=== PATIENT | female | born 1970 | race Caucasian/White ===

== ENCOUNTER 2017-06-18 08:00 | Outpatient (CLI) | payer OTHER ==
[2017-06-18 12:46] LABS: BASOPHILS % (AUTO) 0.7 %; EOSINOPHILS # (AUTO) 0.1 10^3/uL (0.0-0.7); EOSINOPHILS % (AUTO) 1.2 %; HGB - HEMOGLOBIN 15.7 g/dL (12.0-16.0); LYMPHOCYTES # (AUTO) 1.6 10^3/uL (1.5-3.5); MEAN CORPUSCULAR HEMOGLOBIN 32.3 pg (27.0-31.0); MEAN CORPUSCULAR HGB CONC 34.8 g/dL (32.0-36.0); MEAN CORPUSCULAR VOLUME 92.8 fL (81.0-99.0); MEAN PLATELET VOLUME 8.3 fL (7.9-10.8); MONOCYTES # (AUTO) 0.4 10^3/uL (0.0-1.0); MONOCYTES % (AUTO) 7.1 %; NEUTROPHILS # (AUTO) 4.1 10^3/uL (1.5-6.6); PLT - PLATELET COUNT 220 10^3/uL (130-450); RED BLOOD COUNT 4.87 10^6/uL (4.20-5.40); RED CELL DISTRIBUTION WIDTH 12.7 % (12.0-15.0); WHITE BLOOD COUNT 6.3 x10^3/uL (4.8-10.8)
[2017-06-18 13:14] LABS: ALBUMIN 4.4 g/dL (3.2-5.5); ALBUMIN/GLOBULIN RATIO 1.6 (1.0-2.2); ALKALINE PHOSPHATASE 45 IU/L (42-121); ALT ALANINE AMINOTRANSFERASE 19 IU/L (10-60); AST ASPARTATE AMINOTRANSFERASE 22 IU/L (10-42); BILIRUBIN,TOTAL 0.6 mg/dL (0.2-1.0); BUN - BLOOD UREA NITROGEN 12 mg/dL (6-20); CALCIUM 9.2 mg/dL (8.5-10.3); CARBON DIOXIDE - CO2 22 mmol/L (21-32); CHLORIDE 107 mmol/L (101-111); CHOLESTEROL 190 mg/dL; CREATININE 0.6 mg/dL (0.4-1.0); GFR - MDRD 108 (>89); GLUCOSE 96 mg/dL (70-100); HDL CHOLESTEROL 64 mg/dL; LDL CHOLESTEROL,CALCULATED 107 mg/dL; LDL/HDL RATIO 1.7 (<4.4); SODIUM 137 mmol/L (135-145); TOTAL PROTEIN 7.2 g/dL (6.7-8.2); VLDL CHOLESTEROL 19 mg/dL
== END 2017-06-18 08:01 | disposition home or self-care (01) ==
LOC: LAB.WCP 08:00
PROVIDERS: ATTEND Family Medicine
DX: I95.1 Orthostatic hypotension (principal)
CPT/HCPCS: 36415; 80053; 80061; 82533; 83721; 84443; 85025

== ENCOUNTER 2018-03-01 14:30 | Outpatient (CLI) | payer OTHER | END 2018-03-01 23:59 | disposition home or self-care (01) | LOC: LAB.R 14:30 | PROVIDERS: ATTEND Physician Assistant | DX: R30.0 Dysuria (principal) | CPT/HCPCS: 87086; 87181 ==

== ENCOUNTER 2020-01-12 20:58 | Emergency (ER) | payer OTHER ==
[2020-01-12 21:08] VITALS: BP 130/71
[2020-01-12] MEDS ORDERED: DEXAMETHASONE 10 MG/ML VIAL PO STA (21:27)
[2020-01-12] MEDS ORDERED: CHERRY SYRUP 10 ML UDC PO ONE (21:27)
[2020-01-12] MEDS ORDERED: KETOROLAC 60 MG/2 ML VIAL IM STA (21:27)
--- NOTE | 2020-01-12 21:30 | ED Physician Documentation ---
PD HPI BACK PAIN - Stated complaint Stated Complaint: BACK INJURY - Chief complaint Chief Complaint: Back Pain - History obtained from History obtained from: Patient - History of Present Illness Timing - onset: How many days ago (5) Timing - duration: Days (5) Timing - details: Gradual onset, Still present Location: Lower Quality: Pain, Spasm, Sharp Associated symptoms: No: Fever, Weakness, Numbness, Incontinent of urine, Unable to urinate, Hematuria, Incontinent of stool Improves with: Rest, Ice, Position, Meds Worsened by: Movement, Lifting, Twisting Contributing factors: Other (work related injury from pulling heavy cart) Similar symptoms before: Has not had sx before Recently seen: Not recently seen - Additional information Additional information: 49 y/o female 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 She is using a heating pack and switching to ice. She has been sleeping with the heading pack on. Review of Systems Constitutional: denies: Fever Eyes: denies: Decreased vision Ears: denies: Ear pain Nose: denies: Rhinorrhea / runny nose, Congestion Respiratory: denies: Cough GI: denies: Vomiting, Constipation, Diarrhea Musculoskeletal: reports: Back pain. denies: Extremity pain PD PAST MEDICAL HISTORY - Present Medications Home Medications: Ambulatory Orders Medication Instructions Recorded Confirmed Cyclobenzaprine [Flexeril] 10 mg PO TID PRN #20 tablet 01/12/20 - Allergies Allergies/Adverse Reactions: Allergies Allergy/AdvReac Type Severity Reaction Status Date / Time No Known Drug Allergies Allergy Verified 01/12/20 21:08 PD ED PE NORMAL - Vitals Vital signs reviewed: Yes (normal ) - General General: Alert and oriented X 3, No acute distress, Well developed/nourished - HEENT HEENT: Atraumatic, PERRL, EOMI - Respiratory Respiratory: No respiratory distress - Back Back: No CVA TTP, No spinal TTP, Other (There is tenderness to the paraspinous muscles of the lower lumbar spine bilaterally extending to the insertion of the latisums to the ishium) - Derm Derm: Normal color, Warm and dry, No rash - Extremities Extremities: No deformity, No tenderness to palpate, Normal ROM s pain, No edema - Neuro Neuro: Alert and oriented X 3, corporate lawyer 2-12 intact, No motor deficit, No sensory deficit, Normal speech Eye Opening: Spontaneous Motor: Obeys Commands Verbal: Oriented GCS Score: 15 - Psych Psych: Normal mood, Normal affect Results - Vitals Vitals: Vital Signs - 24 hr 01/12/20 21:02 Temperature 36.9 C Heart Rate 99 Respiratory 18 Rate Blood Pressure 130/71 O2 Saturation 99 Oxygen O2 Source Room air PD MEDICAL DECISION MAKING - ED course Complexity details: considered differential, d/w patient ED course: 49 y/o female with a myofacial strain of the lower back related to pulling heavy carts at work. She has no signs or symptoms of disc disease. she is treated here in the ED with decadron and toradal and she refuses narcotic script. We will provide muscle relaxant and a note for work. Departure - Departure Disposition: 01 Home, Self Care Clinical Impression: Acute lumbar myofascial strain Qualifiers: Encounter type: initial encounter Qualified Code(s): S39.012A - Strain of muscle, fascia and tendon of lower back, initial encounter Condition: Stable Instructions: ED Sprain Strain Lumbar Follow-Up: Isaac Daniels DO [Primary Care Provider] - Prescriptions: Cyclobenzaprine [Flexeril] 10 mg PO TID PRN #20 tablet PRN Reason: Spasms Forms: Activity restrictions
== END 2020-01-12 21:54 | disposition home or self-care (01) ==
LOC: ED 20:58
DX: S39.012A Strain of muscle, fascia and tendon of lower back, initial encounter (principal); X50.0XXA Overexertion from strenuous movement or load, initial encounter; Y93.89 Activity, other specified; Y92.29 Other specified public building as the place of occurrence of the external cause; Y99.0 Civilian activity done for income or pay
CPT/HCPCS: 96372; 99282; 99284; A9270

== ENCOUNTER 2020-01-17 09:45 | Outpatient (CLI) | payer OTHER ==
--- NOTE | 2020-01-17 10:26 | XRAY Report ---
PROCEDURE: Lumbar Spine View INDICATIONS: LUMBAR STRAIN TECHNIQUE: 2 views of the lumbar spine were acquired. COMPARISON: None. FINDINGS: Bones: 5 [id number] vertebrae are present. There is normal bony alignment. No acute vertebral body compression fractures. No suspicious bony lesions. Mild mid and lower lumbar spondylosis most pronounced at L5-S1. Soft tissues: Overlying bowel gas pattern is normal. No suspicious soft tissue calcifications. IMPRESSION: Lumbar spine without acute osseous abnormalities. Mild mid and lower lumbar spondylosis. Reviewed by: Shane Jacques MD on 01/17/2020 10:25 AM PST Approved by: Shane Jacques MD on 01/17/2020 10:25 AM PST Station ID: [id number]
== END 2020-01-17 09:46 | disposition home or self-care (01) ==
LOC: DI.WCP 09:45
PROVIDERS: ATTEND Family Medicine
DX: S39.012A Strain of muscle, fascia and tendon of lower back, initial encounter (principal); M47.816 Spondylosis without myelopathy or radiculopathy, lumbar region
CPT/HCPCS: 72100

== ENCOUNTER 2020-04-09 09:17 | Emergency (ER) | payer OTHER ==
[2020-04-09] MEDS ORDERED: SODIUM CHLORIDE 0.9% 1,000 ML IV STA (09:27)
--- NOTE | 2020-04-09 09:50 | XRAY Report ---
PROCEDURE: Chest 1 View X-Ray INDICATIONS: Chest Pain TECHNIQUE: One view of the chest was acquired. COMPARISON: None FINDINGS: Surgical changes and devices: None. Lungs and pleura: No pleural effusions or pneumothorax. Lungs are clear. Mediastinum: Mediastinal contours appear normal. Heart size is normal. Bones and chest wall: No suspicious bony lesions. Overlying soft tissues appear unremarkable. IMPRESSION: No acute cardiac or pulmonary process demonstrated radiographically. Reviewed by: Dennis Vogel MD on 04/09/2020 8:49 AM [facility] Approved by: Dennis Vogel MD on 04/09/2020 8:49 AM [facility] Station ID: [id number]
[2020-04-09 09:58] LABS: BASOPHILS % (AUTO) 0.4 %; EOSINOPHILS % (AUTO) 0.1 %; LYMPHOCYTES # (AUTO) 1.1 10^3/uL (1.5-3.5); LYMPHOCYTES % (AUTO) 14.6 %; MEAN CORPUSCULAR HEMOGLOBIN 33.4 pg (27.0-31.0); MEAN CORPUSCULAR HGB CONC 34.1 g/dL (32.0-36.0); MEAN PLATELET VOLUME 8.9 fL (7.9-10.8); MONOCYTES # (AUTO) 0.6 10^3/uL (0.0-1.0); MONOCYTES % (AUTO) 7.6 %; NEUTROPHILS % (AUTO) 76.5 %; PLT - PLATELET COUNT 256 10^3/uL (130-450); RED BLOOD COUNT 4.49 10^6/uL (4.20-5.40); RED CELL DISTRIBUTION WIDTH 12.2 % (12.0-15.0); WHITE BLOOD COUNT 7.8 x10^3/uL (4.8-10.8)
--- NOTE | 2020-04-09 10:10 | ED Physician Documentation ---
PD HPI ABD PAIN - Stated complaint Stated Complaint: CHEST PX - Chief complaint Chief Complaint: Cardiac - History obtained from History obtained from: Patient - Additional information Additional information: Pt comes to the emergency department chief complaint of upper abdominal and lower chest pain for the last 2 days. She states that it hurts whenever she moves or takes a deep breath. She has a history of a peptic ulcer when she was 20 and using methamphetamines, but states she has had no issue with that since. 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 Patient states she was told she has a "low acid state" in her stomach and so she stopped taking even Tums. Patient denies any history of gall bladder issues. No nausea or vomiting. She is not known to have any coronary artery disease. She does have a history of mitral valve prolapse, and does state that there is a family history of coronary artery disease in primary family members in their 40s. Patient denies shortness of breath. No fevers or chills. No cough. No other complaints at this time. No bowel changes. Review of Systems Ten Systems: 10 systems reviewed and negative Constitutional: reports: Reviewed and negative Eyes: reports: Reviewed and negative Ears: reports: Reviewed and negative Nose: reports: Reviewed and negative Throat: reports: Reviewed and negative Cardiac: reports: Chest pain / pressure Respiratory: reports: Reviewed and negative GI: reports: Abdominal Pain : reports: Reviewed and negative Skin: reports: Reviewed and negative Musculoskeletal: reports: Reviewed and negative Neurologic: reports: Reviewed and negative Psychiatric: reports: Reviewed and negative Endocrine: reports: Reviewed and negative Immunocompromised: reports: Reviewed and negative PD PAST MEDICAL HISTORY - 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 - Present Medications Home Medications: Ambulatory Orders Medication Instructions Recorded Confirmed Ibuprofen [Motrin] 800 mg PO Q8H PRN 04/09/20 04/09/20 cephALEXin [Keflex] 125 mg PO DAILY 04/09/20 04/09/20 - Allergies Allergies/Adverse Reactions: Allergies Allergy/AdvReac Type Severity Reaction Status Date / Time codeine Allergy Unknown Verified 04/09/20 09:22 fluoxetine [From Prozac] Allergy Unknown Verified 04/09/20 09:22 pneumococcal vaccine Allergy Unknown Verified 04/09/20 09:22 [From Pneumovax-23] sertraline [From Zoloft] Allergy Unknown Verified 04/09/20 09:22 shellfish derived Allergy Unknown Verified 04/09/20 09:22 raw honey Allergy Unknown Uncoded 01/16/20 14:34 narcotic AdvReac Unknown Uncoded 04/09/20 09:37 - Social History Does the pt smoke?: Yes Smoking Status: Current every day smoker Does the pt drink ETOH?: No Does the pt have substance abuse?: No - Immunizations Immunizations are current?: Yes - POLST Patient has POLST: No PD ED PE NORMAL - Vitals Vital signs reviewed: Yes - General General: Alert and oriented X 3, No acute distress - HEENT HEENT: Atraumatic, PERRL, EOMI, Moist mucous membranes - Neck Neck: Supple, no meningeal sign - Cardiac Cardiac: RRR, No murmur - Respiratory Respiratory: No respiratory distress, Clear bilaterally - Abdomen Abdomen: Soft, Non distended, Other (Moderate, epigastrium. No RB/guarding) - Derm Derm: Warm and dry - Extremities Extremities: No deformity - Neuro Neuro: Alert and oriented X 3 - Psych Psych: Normal mood, Normal affect Results - Vitals Vitals: Oxygen O2 Source Room air - EKG (time done) 0919 Rate: Rate (enter#) (100) Rhythm: NSR, LAE, CHIDI [place]: Normal Intervals: Normal GA QRS: Normal Ischemia: Normal ST segments. No: T wave inversion Compare to prior EKG: Old EKG unavailable Computer interpretation: Agree with computer - Labs Labs: Laboratory Tests 04/09/20 04/09/20 04/09/20 09:41 09:41 09:41 WBC 7.8 RBC 4.49 Hgb 15.0 Hct 44.0 MCV 98.0 MCH 33.4 H MCHC 34.1 RDW 12.2 Plt Count 256 MPV 8.9 Neut # (Auto) 6.0 Lymph # (Auto) 1.1 L [place] # (Auto) 0.6 Eos # (Auto) 0.0 Baso # (Auto) 0.0 Absolute Nucleated RBC 0.00 Nucleated RBC % 0.0 Sodium 133 L Potassium 4.0 Chloride 101 Carbon Dioxide 22 Anion Gap 10.0 BUN 13 Creatinine 0.6 Estimated GFR (MDRD) 107 Glucose 90 Calcium 9.1 Total Bilirubin 1.4 H AST 19 ALT 13 Alkaline Phosphatase 77 Troponin I High Sens < 2.3 L Total Protein 6.8 Albumin 4.0 Globulin 2.8 Albumin/Globulin Ratio 1.4 Lipase 18 L PD MEDICAL DECISION MAKING - ED course Complexity details: reviewed results, re-evaluated patient, considered differential, d/w patient ED course: The patient was given a 1 L bolus point and normal saline. She declined a PPI or GI cocktail, and stated that she also did not want any narcotic pain medication, due to her drug use history. Pt was worked up with laboratory studies, which were unremarkable. EKG was unremarkable. Given that the patient had been having this discomfort for several days now, I did not feel that a repeat troponin was indicated. The patient was stable for discharge home. We have discussed the need for follow-up in family medicine to discuss further management, including possibly set up for endoscopy and stress test. The patient is counseled regarding the usual indications for return Departure - Departure Disposition: 01 Home, Self Care Clinical Impression: Esophagitis Abdominal pain Qualifiers: Abdominal location: epigastric Qualified Code(s): R10.13 - Epigastric pain Condition: Stable Instructions: ED GERD Comments: Your labs and EKG look great. There is no evidence of pancreatitis, which is sometimes a cause of pain in the location where you are having it. Additionally, your heart and liver labs look good. Most likely, you have some reflux of stomach contents into the bottom portion of the esophagus, which is sensitive and does not contain the lining that is equipped to handle the acidic stomach contents. Often, this will cause a burning sensation, but it can also cause a searing pain or deep ache, both from inflammation of the esophageal lining, as well as from esophageal spasm. You have declined medication here in the emergency department, but you may use Maalox [id number] if needed. It is importantly follow-up with your primary care physician to discuss whether an endoscopy is needed to further evaluate your upper abdominal pain. Discharge Date/Time: 04/09/20 11:29
[2020-04-09 10:54] LABS: ALBUMIN/GLOBULIN RATIO 1.4 (1.0-2.2); BILIRUBIN,TOTAL 1.4 mg/dL (0.2-1.0); CALCIUM 9.1 mg/dL (8.5-10.3); CREATININE 0.6 mg/dL (0.4-1.0); TOTAL PROTEIN 6.8 g/dL (6.7-8.2)
[2020-04-09 11:12] VITALS: BP 124/70
== END 2020-04-09 11:29 | disposition home or self-care (01) ==
LOC: ED 09:17
DX: K20.90 Esophagitis, unspecified without bleeding (principal); R10.13 Epigastric pain; F17.200 Nicotine dependence, unspecified, uncomplicated
CPT/HCPCS: 36415; 80053; 83690; 84484; 85025; 93005; 96360; 99284

== ENCOUNTER 2022-01-31 08:00 | Outpatient (CLI) | payer OTHER | END 2022-01-31 23:59 | disposition home or self-care (01) | LOC: LAB.N 08:00 | PROVIDERS: ATTEND Physician Assistant | DX: N39.0 Urinary tract infection, site not specified (principal) | CPT/HCPCS: 87077; 87086; 87181 ==